=== PATIENT | female | born 1945 | race Caucasian/White ===

== ENCOUNTER 2016-10-18 10:13 | Inpatient (IN) | payer MEDICARE, BC, OTHER ==
[2016-10-16 14:32] LABS: ASCORBIC ACID (UR NOT ORDER) NEG (NEG); BILIRUBIN, URINE NEGATIVE (NEG); KETONE, URINE NEGATIVE (NEG)
--- NOTE | ~2016-10-18 | HP ---
History And Physical [id number] [place]. [address] NAME: MINH RUBI : 47 STATUS : ADM IN [facility]#: [id number] AGE: 70 ADM/REG DATE : 10/18/16 MR#: [id number] REPORT SERV DATE: 10/18/16 DICTATED BY: SOLITARIO OJEDA DATE: 10/18/16 REPORT STATUS : Draft TRANSCRIBED BY: ORTEGA DATE: 10/18/16 DATE OF ADMISSION: 10/18/2016 CHIEF COMPLAINT: Lower extremity cellulitis. HISTORY OF PRESENT ILLNESS: The patient is a 70-year-old white female, who is well known to the Hospitalist Service. Apparently, her daughter found her at her house today. She was confused and less responsive. She brought her to [facility]. The patient has had increased redness and pain to her lower extremities, right greater than left. She has a history of cellulitis last year in July, treated with Zosyn, improved, got some local wound care. She provides no history today. When I arrived, she was somnolent. She could not answer questions or awake to really respond. She would respond to a sternal rub but that was about it. She was hypotensive with some bradycardia. She was given Narcan. She immediately woke and she started screaming that she is burning all over and basically would not answer any of our questions further. PAST MEDICAL HISTORY: 1. Chronic pain on chronic narcotic morphine pump with previous overdose in 2012 requiring intubation. 2. Combined systolic diastolic heart failure. 3. CAD. 4. Peripheral neuropathy. 5. GERD. 6. COPD, on home O2. 7. CKD stage 2 to 3. 8. Depression. 9. Anxiety. 10.Chronic venous stasis, lower extremity edema, and recurrent cellulitis of her lower extremities. 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 12.PE in 1970s. 13.Possible interstitial lung disease. 14.Chronic anemia. 15.PAD. ALLERGIES: QUINOLONES AND MULTIPLE OTHER AGENTS THAT ARE REFERRED TO IN HER MAR. PAST SURGICAL HISTORY: She has had a colectomy and ileostomy, multiple lumbar spine surgeries, hysterectomy, total hip arthroplasty on the right, venous ligation of varicose veins, and bilateral cataracts. SOCIAL HISTORY: She quit smoking about two years ago. She lives independently. She does not drink. FAMILY HISTORY: Positive for congestive heart failure. History And Physical [address] [address] NAME: MINH RUBI : 47 STATUS : ADM IN [facility]#: [id number] AGE: 70 ADM/REG DATE : 10/18/16 MR#: [id number] REPORT SERV DATE: 10/18/16 DICTATED BY: SOLITARIO OJEDA DATE: 10/18/16 REPORT STATUS : Draft TRANSCRIBED BY: ORTEGA DATE: 10/18/16 MEDICATIONS: Per the MAR, please see attached. REVIEW OF SYSTEMS: Ten-point review of systems obtained. Pertinent positives mentioned in the HPI. PHYSICAL EXAMINATION: VITAL SIGNS: Blood pressure 109/35, currently 137/62, sats are 97%, temperature 98.8, pulse of 61, previously her systolic was in the 80s, her pulse was in the 50s. GENERAL: Initially very sleepy lethargic white female, now aroused, but somewhat agitated. HEENT: Normocephalic, atraumatic. Throat is clear. NECK: Supple. HEART: Regular rate and rhythm. LUNGS: Grossly clear. ABDOMEN: Soft. EXTREMITIES: Bilateral lower extremities have erythema, right greater than left with some excoriated skin on the right. Some oozing present and some peripheral edema. It is warm to the touch. Appears painful. The patient does grimace when you touch her legs. LABORATORY AND X-RAY DATA: Urinalysis from 10/16 is negative. Culture from 10/17 is negative on her urine. CBC and H are 9 and 31 and a white count of 6 and platelet count is 190. Flu swab is negative. Sodium 143, potassium 5.6, chloride 110, CO2 of 29, BUN and creatinine 30 and 1.42. Glucose is 81. LFTs are normal. Lactate is 0.5. Chest x-ray interstitial prominence which is likely chronic. ASSESSMENT/PLAN: 1. Bilateral lower extremity cellulitis. I have reviewed her previous cultures and Infectious Disease recommendations. I think it is reasonable to place her back on the Zosyn. We will culture her blood, check a procalcitonin, provide local wound care. 2. Acute encephalopathy with lethargy and somnolence upon arrival. She did have an excellent response to Narcan. She woke up, her blood pressure improved. Her pulse improved, however, she became agitated. I suspect some of this is due to infection but some of this in large part is due to her chronic narcotics. We will try to avoid giving her Narcan if we can help it. We can provide some Geodon if she gets agitated and possibly some benzos. We will follow her in the IMCU overnight since she was so sleepy and she needs to be watched a little more closely, in case she needs additional Narcan. 3. I have consult Dr. Frazier with Pain Management. Perhaps adjust the dose on her morphine pump. 4. History of COPD. I am checking a stat ABG now to rule out hypercapnia as a cause of some of her altered mental status. 5. CAD history. 6. History of peripheral neuropathy, on Neurontin. 7. GERD. 8. History of ileostomy and colectomy secondary to Clostridium difficile. 9. History of remote PE. 10.Deep venous thrombosis prophylaxis. Subcutaneous Lovenox. 11.Mild acute kidney injury with mild hyperkalemia. We will hydrate and hold any inciting agents. History And Physical [address] [address] NAME: MINH RUBI : 47 STATUS : ADM IN [facility]#: [id number] AGE: 70 ADM/REG DATE : 10/18/16 MR#: [id number] REPORT SERV DATE: 10/18/16 DICTATED BY: SOLITARIO OJEDA DATE: 10/18/16 REPORT STATUS : Draft TRANSCRIBED BY: MODL DATE: 10/18/16 12.Disposition pending above. SHANTELL/ORTEGA Solitario Ojeda M.D. / [id number] CC: Darrell Alfonso M.D.
--- NOTE | ~2016-10-18 | IDS ---
Interim Discharge Summary [facility] [address] [place]. [address] NAME: MINH RUBI : 47 STATUS : ADM IN [facility]#: [id number] AGE: 70 ADM/REG DATE : 10/18/16 MR#: [id number] REPORT SERV DATE: 10/22/16 DICTATED BY: EPHRAIM CLAIRE DATE: 10/22/16 REPORT STATUS : Draft TRANSCRIBED BY: MODSanju DATE: 10/22/16 ADMISSION DATE: 10/18/2016 DISCHARGE DATE: Date of interim discharge is 10/22/2016. PROCEDURES DONE: 10/18/2016, chest x-ray: Diffuse bilateral interstitial prominence which may represent primary chronic disease, although superimposed interstitial edema could be present. REASON FOR ADMISSION: Lower extremity cellulitis. FHA UNDERWRITER: Dr. Frazier for pain management. HISTORY OF HOSPITAL STAY: A 70-year-old, white female with past medical history of chronic pain, on chronic narcotic morphine pump, previous overdose in 2012, 2015; history of CHF, systolic/diastolic dysfunction, unknown EF; coronary artery disease; COPD, on home oxygen; peripheral neuropathy; GERD; anxiety; presenting with lower extremity cellulitis. The patient was admitted for treatment of cellulitis. The patient was started on vanc and Zosyn for antibiotic control. Unfortunately, the patient is on morphine pump which complicated the patient's disease. The patient started having encephalopathy with associated hypotension, bradycardia, and hypopnea. Dr. Frazier was consulted regarding the patient's morphine pump. [facility] to decrease the morphine pump. Unfortunately, the patient continued to have issues with her vital signs. The patient received one dose of Narcan 0.2 mg which improved the patient's vital signs during her stay in [facility] at which point, Dr. Frazier was reconsulted regarding decreasing the pain pump to lowest as possible. Currently, the patient has 0.9 mg per day pump. Discussed personally with Dr. Frazier that higher doses would cause the patient to have significant bradycardia, hypopnea, and/or hypotension. The patient unfortunately has not had significant contact with Dr. Frazier. The patient would not make her appointment on time. Therefore, Dr. Frazier has made under straight conditions that the patient will not get any more refill for her morphine pump until the patient is seen in the office. This information was relayed to the patient, who currently understands that there will be no more of morphine pump refill until seen by Dr. Frazier. The daughter Agustina, who was concerned about the patient being obtunded, has had difficulty in supervising the patient. The daughter stated that she is concerned that the patient is being too stuporous at home and not able to maintain her daily activities. Therefore, a discussion with the patient regarding as to what her future treatment plan would be, the patient has opted that she would like to "live" and would like to pursue physical therapy and try to get back her life. DIAGNOSES ON DISCHARGE: 1. Bilateral lower extremity cellulitis. Continue vanc and Zosyn. The patient's cellulitis is gradually improving. 2. Acute encephalopathy with somnolence. Much improved with the decrease of morphine pump. 3. Hypotension, bradycardia, hypopnea secondary to morphine pump. Currently, the Interim Discharge Summary [address] [address] NAME: MINH RUBI : 47 STATUS : ADM IN PAT#: [id number] AGE: 70 ADM/REG DATE : 10/18/16 MR#: [id number] REPORT SERV DATE: 10/22/16 DICTATED BY: EPHRAIM CLAIRE. DATE: 10/22/16 REPORT STATUS : Draft TRANSCRIBED BY: ORTEGA DATE: 10/22/16 patient's morphine pump is set at the lowest setting possible as per Dr. Frazier. Any further decrease of the morphine pump will cause the pump to seize, hence be inoperable. Therefore, Dr. Frazier will only keep the morphine pump at the lowest setting as possible with followup as an outpatient for further refills. 4. Chronic obstructive pulmonary disease. Currently stable. 5. Chronic kidney disease, stage 3. Asymptomatic. SHARRI/ORTEGA Ephraim Claire MD / [id number] CC: MD Arron Bright M.D.
--- NOTE | ~2016-10-18 | DS ---
Discharge Summary [facility] [address] [place]. [address] NAME: MINH RUBI : 47 STATUS : ADM IN [facility]#: [id number] AGE: 71 ADM/REG DATE : 10/18/16 MR#: [id number] REPORT SERV DATE: 10/27/16 DICTATED BY: JR. JARVIS WILLIAM JOHN DATE: 10/26/16 REPORT STATUS : Draft TRANSCRIBED BY: MODSanju DATE: 10/26/16 ADMISSION DATE: 10/18/2016 DISCHARGE DATE: TENTATIVE DATE OF DISCHARGE: 10/26/2016 DISCHARGE DIAGNOSES: 1. Bilateral lower extremity cellulitis. 2. Acute encephalopathy thought to be secondary to medication effect. 3. Chronic pain syndrome with an implanted morphine pump. 4. Chronic obstructive pulmonary disease. 5. Chronic kidney disease, stage 3. 6. Chronic hypoxic respiratory failure on three to four liters at baseline. OPERATIONS, PROCEDURES, AND TREATMENTS: Include, 1. Chest x-ray done on 10/18/2016 which showed diffuse bilateral interstitial prominence possibly representing chronic disease, superimposed interstitial edema could not be ruled out. 2. Venous Doppler ultrasound of bilateral lower extremities. No evidence of acute left lower extremity deep vein thrombosis. DISCHARGE MEDICATIONS: Include. 1. Artificial Tears three times a day. 2. Aspirin 81 daily. 3. Calcium plus D 600 mg twice a day. 4. Vitamin D 2000 units daily. 5. Lexapro 10 mg orally daily. 6. Famotidine 20 mg orally twice a day. 7. Ferrous sulfate 300 mg orally twice a day. 8. Lasix 20 mg orally twice a day. 9. Neurontin 400 mg three times a day. 10.Metoprolol 12.5 mg orally twice a day. 11.Morphine pump with bupivacaine. 12.Dulcolax suppository 5 mg as needed. 13.Nitroglycerin 0.4 mg sublingually as needed. 14.Zofran 4 mg as needed. 15.Simethicone 80 mg orally as needed. 16.Keflex 500 mg twice a day for five days. HOSPITAL COURSE: The patient was a 70-year-old female who presented to the emergency room on 10/18 with complaint of lower extremity cellulitis. Apparently, the patient's daughter found her at her house confused and less responsive than normal. She had increased redness and pain to her lower extremities, right greater than left, and had a history of prior cellulitis of the legs. The patient's initial exam showed temperature 98.8, blood pressure 109/35, heart rate 61, respiratory rate was normal. Extremities showed bilateral lower extremity erythema, right greater than left with some excoriation of skin on the right and Discharge Summary [address] [place]. [address] NAME: MINH RUBI : 47 STATUS : ADM IN PAT#: [id number] AGE: 71 ADM/REG DATE : 10/18/16 MR#: [id number] REPORT SERV DATE: 10/27/16 DICTATED BY: JR. JARVIS WILLIAM JOHN DATE: 10/26/16 REPORT STATUS : Draft TRANSCRIBED BY: ORTEGA DATE: 10/26/16 oozing edema. Initial lab showed a white count of 6, potassium slightly elevated at 5.6. The patient was placed on IV Zosyn and vancomycin. Her edema and evidence of infection continually improved. Procalcitonin was checked, it was less than 0.05. Her Zosyn and vancomycin were discontinued. She was placed on Kefzol without further symptoms, will complete five additional days of Keflex. Regarding the patient's encephalopathy, her pain pump was adjusted to the lowest possible setting and her encephalopathy resolved. The remainder of the patient's health problems remained stable. She continued to be deconditioned. She was felt to be appropriate for rehabilitation, is currently being evaluated, and anticipate the patient being discharged to rehabilitation today, 10/26/2016. DISCHARGE DIET: Regular. ACTIVITY: As tolerated. For discharge exam and laboratory, please see daily progress note. This discharge took 38 minutes for patient encounter, coordination of care, and documentation. WYvesF/ORTEGA Heriberto Jarvis Jr, MD / [id number] CC: Heriberto Jarvis Jr, MD Donald Zeigler, M.D.
--- NOTE | ~2016-10-18 | DS ---
Discharge Summary [facility] [address] [place]. [address] NAME: MINH RUBI : 47 STATUS : DIS IN PAT#: [id number] AGE: 71 ADM/REG DATE : 10/18/16 MR#: [id number] REPORT SERV DATE: 10/28/16 DICTATED BY: JR. JARVIS WILLIAM JOHN DATE: 10/27/16 REPORT STATUS : Draft TRANSCRIBED BY: ORTEGA DATE: 10/27/16 ADMISSION DATE: 10/18/2016 DISCHARGE DATE: 10/27/2016 This is an addendum to dictation #[id number] ADDENDUM: The patient did not get accepted to rehabilitation facility yesterday. We are expecting her to be accepted to [facility] today. There were no events or other issues overnight. No medication changes. For discharge exam and laboratory, please see daily progress note. WYvesF/ORTEGA Heriberto Jarvis Jr, MD / [id number] CC: Heriberto Jarvis Jr, MD Donald Zeigler, M.D.
[2016-10-18 09:44] LABS: BASOPHILS 0.2 %; BASOPHILS ABSOLUTE 0.01 10/3/uL (0.0-0.16); EOSINOPHILS 2.9 %; EOSINOPHILS ABSOLUTE 0.18 10/3/uL (0.0-0.53); ER CBC TAT 0 Hrs 07 Mins; HEMOGLOBIN 8.9 g/dL (12.0-16.0); IMMATURE GRANULOCYTES 0.8 %; IMMATURE GRANULOCYTES ABSOLUTE 0.05 10/3/uL (0.0-0.11); LYMPHOCYTES 11.1 %; MEAN CORPUS HGB CONC 28.8 g/dL (32.0-36.0); MEAN CORPUSCULAR HEMOGLOB 27.4 pg (26.0-34.0); MEAN CORPUSCULAR VOLUME 95.1 fL (80-100); MEAN PLATELET VOLUME 11.5 fL (9.2-13.0); MONOCYTES 8.3 %; MONOCYTES ABSOLUTE 0.52 10/3/uL (0.21-1.20); NEUTROPHILS 76.7 %; NEUTROPHILS ABSOLUTE 4.82 10/3/uL (2.02-8.40); RBC DISTRIBUTION WIDTH 18.9 % (12.0-16.0); WHITE BLOOD CELLS 6.3 10/3/uL (4.5-10.5)
[2016-10-18 09:46] LABS: HEMATOCRIT 30.9 % (36.0-48.0); MANUAL DIFF NO %; PLATELET COUNT 190 10/3/uL (150-400); RED CELL COUNT 3.25 10/6/uL (4.0-5.6)
[2016-10-18 10:03] LABS: A/G RATIO 0.5 (0.7-1.9); ALBUMIN 2.8 G/DL (3.5-5.0); ALKALINE PHOSPHATASE 104 U/L (45-117); BUN (BLOOD UREA NITROGEN) 30 MG/DL (6-23); CALCIUM, SERUM 8.6 MG/DL (8.5-10.4); CHLORIDE, SERUM 110 MMOL/L (96-112); CO2 (CARBON DIOXIDE) 29 MMOL/L (24-34); CREATININE 1.42 MG/DL (0.55-1.02); GFR AFRICAN AMERICAN 44 ML/MIN (>=60); GFR NON AFRICAN AMERICAN 38 ML/MIN (>=60); GLOBULIN 5.2 G/DL (2.5-4.1); GLUCOSE, SERUM 81 MG/DL (60-99); INFLUENZA A SCREEN NEGATIVE (NEGATIVE); INFLUENZA B SCREEN NEGATIVE (NEGATIVE); POTASSIUM, SERUM 5.6 MMOL/L (3.5-5.3); SGOT(AST) 11 U/L (5-40); SGPT(ALT) 14 U/L (5-65); SODIUM, SERUM 143 MMOL/L (135-148); TOTAL BILIRUBIN < 0.1 MG/DL (0-1.2)
[2016-10-18 10:09] LABS: LACTATE 0.5 MMOL/L (0.3-2.4)
[~2016-10-18 10:13] MED LIST: ADVIL PO; AMB10 PO; AMILORID5B PO; AMILORIDE PO; AMILORIDE5 MG PO; AMIT100 PO; AMIT25 PO; AMIT75 PO; AMITIZA8 MCG PO; ARTHROTEC 50 PO; ASA5GR PO; ASAB PO; BETHAN10B PO; BETHAN25B PO; BIST PO; BUFFERIN PO; BUM1 PO; BUM2 PO; BUM5 PO; BUMEX PO; BUPIVACAINE; CALTRA600D PO; CEFADROXIL1 GM PO; CIP5 PO; CONSTULOSE PO; COREG3 PO; DARCALMA; DSS PO; DUONEB INH; DURICEF PO; FIBER CON PO; FIBER DIET PO; FIBERCON PO; FLORASTOR250 MG PO; GAS-X PO; GAS-X80 MG PO; HALF81 PO; KDUR10 PO; KDUR20 PO; KLONO1 PO; KLOR-CON 1010 MEQ PO; KLOR-CON M1010 MEQ PO; KLOR-CON M2020 MEQ PO; KLOR-CON20 MEQ PO; L20 PO; L40 PO; L80 PO; LEVAQUIN5T PO; LEXAPRO10 PO; LEXAPRO20 PO; LIOR10 PO; LORTAB10 PO; LOTRIMIN AF1 % EX; MAALOX PO; MACRO50B PO; MACROBID PO; MAGCIT PO; MELA3 PO; MELATONIN1 M1 PO; MEPERIDINE; METAMUCIL CAN7 OZ PO; METHOC500B PO; MIRALAXPKT PO; MOMUD PO; MORPHINE; MORPHINE PAIN PUMP; MORPHINE PUMP; MORPHINE SULFATE EP; MS CONTIN; MSCONT60 PO; MYLICON 80 MG T80 MG PO; NEUR100 PO; NEUR300 PO; NEUR400 PO; NEXIUM40 PO; NITRODUR TOP; NITROII10C TOP; NITROSTAT0.4 MG SL; OS500+D PO; OXYCON80 PO; PAIN PUMP; PEP20 PO; PERCOCET1 TA2 PO; PERI-COLACE1 TAB PO; PHAZYME PO; PHENERGAN 2525 MG/M1 PO; PR25 PO; PR25R PR; PRILO PO; PROAIR HFA INH; PROVHFA INH; RELISTOR12 MG/0.6 SC; ROXICODONE30 MG PO; SENOKOTS PO; SENTAB PO; SIMETHICONE 180 MG; SPIRO25 PO; SPIRO50 PO; SYMBICORT 80/4.1 INH INH; TRAZODONE150 MG PO; URECHOLINE50 MG PO; V2 PO; V5 PO; XANAX1 MG PO; Z10 PO; ZANAFLEX 4 MG TA4 MG PO; ZOCOR10 PO; ZYRTEC ALLGY10 MG PO; [UNRECOGNIZED DRUG - CODE] OR; [UNRECOGNIZED DRUG - CODE] PO; [UNRECOGNIZED DRUG - OTHER]; [UNRECOGNIZED DRUG - OTHER] PO; [UNRECOGNIZED DRUG - OTHER] PO; [UNRECOGNIZED DRUG - REMARK]
[2016-10-18] MEDS ORDERED: PEP20 PO (12:17)
[2016-10-18] MEDS ORDERED: PRILO PO (12:18)
[2016-10-18] MEDS ORDERED: EZFE 200200 MG PO (12:19)
[2016-10-18] MEDS ORDERED: L20 PO (12:19)
[2016-10-18] MEDS ORDERED: ASAB PO (12:20)
[2016-10-18] MEDS ORDERED: NEUR400 PO (12:20)
[2016-10-18] MEDS ORDERED: LEXAPRO10 PO (12:20)
[2016-10-18] MEDS ORDERED: VITAMIN D2000 UNIT PO (12:20)
[2016-10-18] MEDS ORDERED: OS500+D PO (12:20)
[2016-10-18] MEDS ORDERED: SSD 1% TOP (12:21)
[2016-10-18] MEDS ORDERED: NITROSTAT0.4 MG SL (12:21)
[2016-10-18] MEDS ORDERED: AUG875 PO (12:21)
[2016-10-18] MEDS ORDERED: MORPHINE PAIN PUMP IT (12:22)
[2016-10-18] MEDS ORDERED: BIST PO (12:22)
[2016-10-18] MEDS ORDERED: GAS-X80 MG PO (12:22)
[2016-10-18] MEDS ORDERED: 8 HOUR650 MG PO (12:23)
[2016-10-18 12:52] LABS: ALLENS TEST Pos; BE (BASE EXCESS) -0.6 MEQ/L (0 +/- 2.5); CARBOXYHEMOGLOBIN 1.4 % (0-3); DEVICE NC; HCO3 (ACTUAL BICARBONATE) 25.8 MEQ/L (23-27); HEMOBLOGIN CONTENT 9.5 G/DL (12-16); INSTRUMENT SERIAL # 8087; METHEMOGLOBIN 0.4 % (0-3); O2 CONTENT 11.7 VOL% (18-24); OPERATOR ID 14904~00; PCO2 (CO2 TENSION) 51 MMHG (35-45); PO2 (O2 TENSION) 58 MMHG (79-93); SAMPLE Arterial; pH 7.32 (7.37-7.43)
[2016-10-18 14:50] LABS: AMPHETAMINES (NOT ORD) NEG (NEG); BARBITURATES (NOT ORDERED NEG (NEG); BENZODIAZEPINES (NOT ORD) NEG (NEG); CANNABINOIDS (THC) NEG (NEG); COCAINE (NOT ORDERED) NEG (NEG); OPIATES POS (NEG); PHENCYCLIDINE(PCP) NEG (NEG); TRICYCLICS NEG (NEG)
[2016-10-18 15:15] LABS: PROCALCITONIN <0.05 ng/mL (<0.5)
[2016-10-18 15:26] LABS: LACTATE 0.9 MMOL/L (0.3-2.4)
[2016-10-18 17:55] LABS: LACTATE 0.9 MMOL/L (0.3-2.4)
[2016-10-20 06:36] LABS: BASOPHILS 0.4 %; BASOPHILS ABSOLUTE 0.03 10/3/uL (0.0-0.16); EOSINOPHILS 1.2 %; EOSINOPHILS ABSOLUTE 0.08 10/3/uL (0.0-0.53); HEMOGLOBIN 7.8 g/dL (12.0-16.0); IMMATURE GRANULOCYTES 0.1 %; IMMATURE GRANULOCYTES ABSOLUTE 0.01 10/3/uL (0.0-0.11); LYMPHOCYTES 14.1 %; LYMPHOCYTES ABSOLUTE 0.97 10/3/uL (0.67-4.30); MEAN CORPUS HGB CONC 29.4 g/dL (32.0-36.0); MEAN CORPUSCULAR HEMOGLOB 27.5 pg (26.0-34.0); MEAN CORPUSCULAR VOLUME 93.3 fL (80-100); MONOCYTES 6.9 %; MONOCYTES ABSOLUTE 0.47 10/3/uL (0.21-1.20); NEUTROPHILS 77.3 %; PLATELET COUNT 184 10/3/uL (150-400); RBC DISTRIBUTION WIDTH 19.2 % (12.0-16.0); RED CELL COUNT 2.84 10/6/uL (4.0-5.6); WHITE BLOOD CELLS 6.9 10/3/uL (4.5-10.5)
[2016-10-20 06:53] LABS: A/G RATIO 0.5 (0.7-1.9); ALBUMIN 2.3 G/DL (3.5-5.0); CALCIUM, SERUM 8.5 MG/DL (8.5-10.4); CHLORIDE, SERUM 113 MMOL/L (96-112); CO2 (CARBON DIOXIDE) 28 MMOL/L (24-34); CREATININE 1.02 MG/DL (0.55-1.02); GFR AFRICAN AMERICAN 65 ML/MIN (>=60); GFR NON AFRICAN AMERICAN 56 ML/MIN (>=60); GLOBULIN 4.6 G/DL (2.5-4.1); GLUCOSE, SERUM 76 MG/DL (60-99); SGOT(AST) 12 U/L (5-40); SGPT(ALT) 11 U/L (5-65); SODIUM, SERUM 147 MMOL/L (135-148); TOTAL PROTEIN 6.9 G/DL (6.0-8.5)
[2016-10-20 06:56] LABS: ALKALINE PHOSPHATASE 85 U/L (45-117); BUN (BLOOD UREA NITROGEN) 17 MG/DL (6-23); PHOSPHORUS, SERUM 2.4 MG/DL (2.5-4.5); POTASSIUM, SERUM 4.4 MMOL/L (3.5-5.3); TOTAL BILIRUBIN 0.6 MG/DL (0-1.2)
[2016-10-20 06:57] LABS: HEMATOCRIT 26.5 % (36.0-48.0); MANUAL DIFF NO %
[2016-10-21 04:44] LABS: BASOPHILS 0.3 %; BASOPHILS ABSOLUTE 0.03 10/3/uL (0.0-0.16); EOSINOPHILS 0.3 %; EOSINOPHILS ABSOLUTE 0.03 10/3/uL (0.0-0.53); HEMOGLOBIN 8.5 g/dL (12.0-16.0); IMMATURE GRANULOCYTES 0.3 %; IMMATURE GRANULOCYTES ABSOLUTE 0.03 10/3/uL (0.0-0.11); LYMPHOCYTES 12.5 %; LYMPHOCYTES ABSOLUTE 1.12 10/3/uL (0.67-4.30); MEAN PLATELET VOLUME 11.5 fL (9.2-13.0); MONOCYTES ABSOLUTE 0.54 10/3/uL (0.21-1.20); NEUTROPHILS 80.6 %; NEUTROPHILS ABSOLUTE 7.18 10/3/uL (2.02-8.40); PLATELET COUNT 218 10/3/uL (150-400); RBC DISTRIBUTION WIDTH 19.2 % (12.0-16.0); RED CELL COUNT 3.15 10/6/uL (4.0-5.6); WHITE BLOOD CELLS 8.9 10/3/uL (4.5-10.5)
[2016-10-21 04:45] LABS: HEMATOCRIT 29.3 % (36.0-48.0); MANUAL DIFF NO %
[2016-10-21 04:54] LABS: A/G RATIO 0.5 (0.7-1.9); ALBUMIN 2.4 G/DL (3.5-5.0); ALKALINE PHOSPHATASE 91 U/L (45-117); BUN (BLOOD UREA NITROGEN) 16 MG/DL (6-23); CALCIUM, SERUM 9.2 MG/DL (8.5-10.4); CHLORIDE, SERUM 111 MMOL/L (96-112); CO2 (CARBON DIOXIDE) 27 MMOL/L (24-34); CREATININE 1.12 MG/DL (0.55-1.02); GFR AFRICAN AMERICAN 58 ML/MIN (>=60); GFR NON AFRICAN AMERICAN 50 ML/MIN (>=60); GLOBULIN 5.2 G/DL (2.5-4.1); GLUCOSE, SERUM 80 MG/DL (60-99); PHOSPHORUS, SERUM 3.1 MG/DL (2.5-4.5); POTASSIUM, SERUM 4.3 MMOL/L (3.5-5.3); SGOT(AST) 13 U/L (5-40); SGPT(ALT) 13 U/L (5-65); SODIUM, SERUM 148 MMOL/L (135-148); TOTAL BILIRUBIN 0.2 MG/DL (0-1.2); TOTAL PROTEIN 7.6 G/DL (6.0-8.5)
[2016-10-22 03:47] LABS: BASOPHILS 0.3 %; BASOPHILS ABSOLUTE 0.03 10/3/uL (0.0-0.16); EOSINOPHILS 0.2 %; EOSINOPHILS ABSOLUTE 0.02 10/3/uL (0.0-0.53); HEMATOCRIT 28.4 % (36.0-48.0); HEMOGLOBIN 8.6 g/dL (12.0-16.0); IMMATURE GRANULOCYTES 0.2 %; IMMATURE GRANULOCYTES ABSOLUTE 0.02 10/3/uL (0.0-0.11); LYMPHOCYTES 11.3 %; LYMPHOCYTES ABSOLUTE 1.11 10/3/uL (0.67-4.30); MANUAL DIFF NO %; MEAN CORPUS HGB CONC 30.3 g/dL (32.0-36.0); MEAN CORPUSCULAR HEMOGLOB 27.4 pg (26.0-34.0); MEAN CORPUSCULAR VOLUME 90.4 fL (80-100); MONOCYTES 5.4 %; MONOCYTES ABSOLUTE 0.53 10/3/uL (0.21-1.20); NEUTROPHILS 82.6 %; PLATELET COUNT 212 10/3/uL (150-400); RBC DISTRIBUTION WIDTH 19.1 % (12.0-16.0); RED CELL COUNT 3.14 10/6/uL (4.0-5.6); WHITE BLOOD CELLS 9.8 10/3/uL (4.5-10.5)
[2016-10-22 04:03] LABS: A/G RATIO 0.5 (0.7-1.9); ALBUMIN 2.5 G/DL (3.5-5.0); ALKALINE PHOSPHATASE 89 U/L (45-117); BUN (BLOOD UREA NITROGEN) 18 MG/DL (6-23); CHLORIDE, SERUM 108 MMOL/L (96-112); CO2 (CARBON DIOXIDE) 28 MMOL/L (24-34); CREATININE 1.09 MG/DL (0.55-1.02); GFR AFRICAN AMERICAN 60 ML/MIN (>=60); GFR NON AFRICAN AMERICAN 52 ML/MIN (>=60); GLOBULIN 5.1 G/DL (2.5-4.1); GLUCOSE, SERUM 88 MG/DL (60-99); PHOSPHORUS, SERUM 3.3 MG/DL (2.5-4.5); POTASSIUM, SERUM 3.8 MMOL/L (3.5-5.3); SGOT(AST) 15 U/L (5-40); SGPT(ALT) 12 U/L (5-65); SODIUM, SERUM 146 MMOL/L (135-148); TOTAL BILIRUBIN 0.4 MG/DL (0-1.2); TOTAL PROTEIN 7.6 G/DL (6.0-8.5)
[2016-10-23 04:05] LABS: BASOPHILS 0.1 %; BASOPHILS ABSOLUTE 0.01 10/3/uL (0.0-0.16); EOSINOPHILS 0.5 %; EOSINOPHILS ABSOLUTE 0.04 10/3/uL (0.0-0.53); HEMATOCRIT 27.4 % (36.0-48.0); HEMOGLOBIN 8.4 g/dL (12.0-16.0); IMMATURE GRANULOCYTES 0.2 %; IMMATURE GRANULOCYTES ABSOLUTE 0.02 10/3/uL (0.0-0.11); LYMPHOCYTES 17.8 %; LYMPHOCYTES ABSOLUTE 1.48 10/3/uL (0.67-4.30); MEAN CORPUS HGB CONC 30.7 g/dL (32.0-36.0); MEAN CORPUSCULAR HEMOGLOB 27.5 pg (26.0-34.0); MEAN CORPUSCULAR VOLUME 89.5 fL (80-100); MONOCYTES 10.9 %; MONOCYTES ABSOLUTE 0.91 10/3/uL (0.21-1.20); NEUTROPHILS 70.5 %; NEUTROPHILS ABSOLUTE 5.86 10/3/uL (2.02-8.40); PLATELET COUNT 205 10/3/uL (150-400); RED CELL COUNT 3.06 10/6/uL (4.0-5.6); WHITE BLOOD CELLS 8.3 10/3/uL (4.5-10.5)
[2016-10-23 04:06] LABS: MANUAL DIFF NO %
[2016-10-23 04:11] LABS: ALBUMIN 2.2 G/DL (3.5-5.0); BUN (BLOOD UREA NITROGEN) 18 MG/DL (6-23); CALCIUM, SERUM 8.2 MG/DL (8.5-10.4); CHLORIDE, SERUM 102 MMOL/L (96-112); CO2 (CARBON DIOXIDE) 32 MMOL/L (24-34); CREATININE 1.06 MG/DL (0.55-1.02); GFR AFRICAN AMERICAN 62 ML/MIN (>=60); GFR NON AFRICAN AMERICAN 54 ML/MIN (>=60); GLUCOSE, SERUM 103 MG/DL (60-99); PHOSPHORUS, SERUM 2.4 MG/DL (2.5-4.5); SODIUM, SERUM 142 MMOL/L (135-148); VANCOMYCIN TROUGH 13.1 MCG/ML (10.0-20.0)
[2016-10-24 06:04] LABS: BASOPHILS 0.4 %; BASOPHILS ABSOLUTE 0.03 10/3/uL (0.0-0.16); EOSINOPHILS ABSOLUTE 0.25 10/3/uL (0.0-0.53); HEMATOCRIT 29.6 % (36.0-48.0); HEMOGLOBIN 8.9 g/dL (12.0-16.0); IMMATURE GRANULOCYTES 0.1 %; IMMATURE GRANULOCYTES ABSOLUTE 0.01 10/3/uL (0.0-0.11); LYMPHOCYTES ABSOLUTE 1.49 10/3/uL (0.67-4.30); MEAN CORPUS HGB CONC 30.1 g/dL (32.0-36.0); MEAN CORPUSCULAR HEMOGLOB 27.6 pg (26.0-34.0); MEAN CORPUSCULAR VOLUME 91.9 fL (80-100); MEAN PLATELET VOLUME 11.7 fL (9.2-13.0); MONOCYTES 9.7 %; NEUTROPHILS 68.8 %; PLATELET COUNT 225 10/3/uL (150-400); RBC DISTRIBUTION WIDTH 19.2 % (12.0-16.0); RED CELL COUNT 3.22 10/6/uL (4.0-5.6); WHITE BLOOD CELLS 8.3 10/3/uL (4.5-10.5)
[2016-10-24 06:06] LABS: MANUAL DIFF NO %
[2016-10-24 06:21] LABS: ALBUMIN 2.3 G/DL (3.5-5.0); BUN (BLOOD UREA NITROGEN) 15 MG/DL (6-23); CALCIUM, SERUM 7.9 MG/DL (8.5-10.4); CHLORIDE, SERUM 104 MMOL/L (96-112); CO2 (CARBON DIOXIDE) 32 MMOL/L (24-34); CREATININE 1.05 MG/DL (0.55-1.02); GFR AFRICAN AMERICAN 63 ML/MIN (>=60); GFR NON AFRICAN AMERICAN 54 ML/MIN (>=60); GLUCOSE, SERUM 116 MG/DL (60-99); PHOSPHORUS, SERUM 2.8 MG/DL (2.5-4.5); SODIUM, SERUM 145 MMOL/L (135-148)
[2016-10-24 06:24] LABS: POTASSIUM, SERUM 3.7 MMOL/L (3.5-5.3)
== END 2016-10-27 17:17 | DRG 602 ==
LOC: ER 10:13 → 7NO 10:56 → IMCU 12:57 → 4SO 10-21 14:39
PROVIDERS: Family Medicine Adult Medicine; Hospitalist; Internal Medicine
DX: L03.115 Cellulitis of right lower limb (principal); G92 Toxic encephalopathy; N17.9 Acute kidney failure, unspecified; J96.11 Chronic respiratory failure with hypoxia; I95.9 Hypotension, unspecified; I50.42 Chronic combined systolic (congestive) and diastolic (congestive) heart failure; Z99.81 Dependence on supplemental oxygen; J44.9 Chronic obstructive pulmonary disease, unspecified; E87.5 Hyperkalemia; I25.10 Atherosclerotic heart disease of native coronary artery without angina pectoris; K21.9 Gastro-esophageal reflux disease without esophagitis; N18.3 Chronic kidney disease, stage 3 (moderate); F41.9 Anxiety disorder, unspecified; F32.9 Major depressive disorder, single episode, unspecified; I87.8 Other specified disorders of veins; I73.9 Peripheral vascular disease, unspecified; D50.9 Iron deficiency anemia, unspecified; R00.1 Bradycardia, unspecified; G89.4 Chronic pain syndrome; T40.2X5A Adverse effect of other opioids, initial encounter; Y92.234 Operating room of hospital as the place of occurrence of the external cause; Z93.2 Ileostomy status; Z86.711 Personal history of pulmonary embolism; Z87.891 Personal history of nicotine dependence
CPT/HCPCS: 36600; 71010; 80053; 80069; 80202; 80305; 81001; 82805; 83605; 83735; 84100; 84145; 85025; 87040; 87086; 87641; 87804; 93005; 93971; 96365; 97110-GP; 97162-GP; 97530-GP; 99285; A9270-GY; G8978-CL-GP; G8979-CK-GP; J0690; J2405; J2543; J3370; J3486